=== PATIENT | male | born 1945 | race Caucasian/White ===

== ENCOUNTER 2017-07-23 20:22 | Inpatient (IN) | payer BC, MEDICARE ==
[~2017-07-23] VITALS: Ht 170.2 cm; Wt 113.9 kg
[2017-07-23 20:48] LABS: HEMATOCRIT 43.7 % (42-54); MEAN CORPUSCULAR HEMOGLOBIN 30.6 pg (27.0-33.0); MEAN CORPUSCULAR HGB CONC 34.2 g/dL (32.0-36.0); MEAN CORPUSCULAR VOLUME 89.4 fL (79-99); PLATELET COUNT (AUTO) 127 K/uL (130-400); RED BLOOD CELL COUNT(AUTO) 4.88 MIL/uL (4.50-6.20); RED CELL DISTRIBUTION WIDTH 14.9 % (11.0-15.5); WHITE BLOOD COUNT (AUTO) 13.3 K/uL (4.8-10.8)
[2017-07-23 20:58] LABS: INR 0.99 (0.85-1.15); PARTIAL THROMBOPLASTIN TIME 24.2 SEC (26.3-35.5); PROTHROMBIN TIME 10.4 SEC (9.6-11.6)
[2017-07-23 20:59] LABS: CREATININE 1.6 mg/dL (0.5-1.5); POTASSIUM 3.5 mmol/L (3.5-5.1)
[2017-07-23 21:14] LABS: ALBUMIN 3.7 g/dL (3.5-5.0); BILIRUBIN,TOTAL 1.2 mg/dL (0.2-1.0); CREATINE KINASE MB 1.7 ng/mL (0.5-3.6); TOTAL PROTEIN, SERUM 7.1 g/dL (6.0-8.3)
[2017-07-23] MEDS ORDERED: DOXYCYCLINE 100MG+NS 250ML 250 ML IV ONE (21:17)
[2017-07-23 21:34] LABS: BAND NEUTROPHILS % (MANUAL) 16 % (0-2); LYMPHOCYTES % (MANUAL) 5 % (22-44); MAN.DIFF COMMENT-IMPRESSION MANUAL DIFFERENTIAL; MONOCYTES % (MANUAL) 1 % (2-9); REACTIVE LYMPHOCYTES 2 % (0-0); SEGMENTED NEUTROPHILS % 76 % (40-70)
[2017-07-23] MEDS ORDERED: ACETAMINOPHEN 325 MG TAB ONE (21:34)
[2017-07-23] MEDS ORDERED: LEVOFLOXACIN 500 MG/D5W 100 ML 100 ML ONE (21:34)
[2017-07-23] MEDS ORDERED: SODIUM CHLORIDE 0.9% 1000ML 1,000 ML IV ONE (21:34)
[2017-07-23 21:35] LABS: PLATELET MORPHOLOGY COMMENT SLIGHTLY DECREASED
[2017-07-23 21:44] LABS: APPEARANCE,URINE Clear (CLEAR); BILIRUBIN,URINE Negative (NEGATIVE); COLOR,URINE Yellow (YELLOW); GLUCOSE, URINE (UA) Negative (NEGATIVE); KETONES,URINE Negative (NEGATIVE); LEUKOCYTE ESTERASE ,URINE Negative (NEGATIVE); NITRATE,URINE Negative (NEGATIVE); OCCULT BLOOD,URINE Small (NEGATIVE); PROTEIN,URINE POS 1+ (NEGATIVE)
[2017-07-23 21:50] LABS: AMPHET/METH SCREEN,URINE NEGATIVE (NEGATIVE); BARBITURATE SCREEN, URINE NEGATIVE (NEGATIVE); BENZODIAZEPINES SCREEN,URINE NEGATIVE (NEGATIVE); CANNABINOID SCREEN,URINE NEGATIVE (NEGATIVE); COCAINE SCREEN,URINE NEGATIVE (NEGATIVE); OPIATE SCREEN,URINE NEGATIVE (NEGATIVE); PHENCYCLIDINE SCREEN,URINE NEGATIVE (NEGATIVE)
[2017-07-23 22:06] LABS: BACTERIA,URINE Rare /HPF (None Seen); RBC,URINE None Seen /HPF (0-1); WBC,URINE 0-1 /HPF (0-1)
[2017-07-23 22:28] LABS: CREATINE KINASE MB 1.5 ng/mL (0.5-3.6); CREATINE KINASE, TOTAL 343 U/L (21-232); MYOGLOBIN 233 ng/mL (10-92); TROPONIN I < 0.04 ng/mL (0.00-0.06)
[2017-07-23] MEDS ORDERED: ACETAMINOPHEN 325 MG TAB PO PRN (23:45)
[2017-07-23] MEDS ORDERED: ONDANSETRON HCL MDV 20ML 2 MG/ML VIAL IVP PRN (23:45)
[2017-07-23] MEDS ORDERED: KETOROLAC TROMETHAMINE 30MG/ML ONE (23:47)
[2017-07-24] MEDS ORDERED: SODIUM CHLORIDE 0.9% 1000ML 1,000 ML IV ONE (03:58)
[2017-07-24 06:45] LABS: CREATINE KINASE MB 2.7 ng/mL (0.5-3.6); CREATINE KINASE, TOTAL 347 U/L (21-232); MYOGLOBIN 473 ng/mL (10-92); TROPONIN I < 0.04 ng/mL (0.00-0.06)
[2017-07-24 07:55] LABS: HIGH SENSITIVITY CRP 104.09 mg/L (0.0-3.0)
[2017-07-24 08:17] VITALS: BP 130/82
[2017-07-24] MEDS: SODIUM CHLORIDE 0.9% 1000ML 1,000 ML IV SCH ×3 (09:45→21:04)
[2017-07-24] MEDS ORDERED: LEVOFLOXACIN 500 MG/D5W 100 ML 100 ML IV SCH (10:00)
[2017-07-24 11:00] VITALS: BP 119/76
[2017-07-24] MEDS: ENOXAPARIN SODIUM 40 MG/0.4 ML SYRINGE SQ SCH (11:02)
[2017-07-24] MEDS ORDERED: LOSA100T29 PO (11:10)
[2017-07-24] MEDS ORDERED: LANS30CA53 PO (11:10)
[2017-07-24] MEDS ORDERED: ATOR40TA69 PO (11:10)
[2017-07-24] MEDS ORDERED: PRAS10TA6 PO (12:20)
[2017-07-24] MEDS ORDERED: ONDANSETRON HCL 4 MG/2 ML VIAL ONE (12:34)
[2017-07-24] MEDS: DOXYCYCLINE 100MG+NS 250ML 250 ML IV SCH ×2 (12:54→20:55)
[2017-07-24 16:00] VITALS: BP 133/76
[2017-07-24 19:00] VITALS: BP 122/79
[2017-07-24] MEDS: LEVOFLOXACIN 500 MG/D5W 100 ML 100 ML IV SCH (20:55)
[2017-07-24 23:39] VITALS: BP 111/70
[2017-07-25] MEDS ORDERED: ONDANSETRON HCL 4 MG/2 ML VIAL ONE (02:53)
[2017-07-25 04:00] VITALS: BP 130/88
[2017-07-25] MEDS: SODIUM CHLORIDE 0.9% 1000ML 1,000 ML IV SCH ×2 (05:05→10:05)
[2017-07-25 05:15] LABS: HEMATOCRIT 42.4 % (42-54); MEAN CORPUSCULAR HEMOGLOBIN 30.7 pg (27.0-33.0); MEAN CORPUSCULAR HGB CONC 33.8 g/dL (32.0-36.0); MEAN CORPUSCULAR VOLUME 90.8 fL (79-99); PLATELET COUNT (AUTO) 107 K/uL (130-400); RED BLOOD CELL COUNT(AUTO) 4.67 MIL/uL (4.50-6.20); RED CELL DISTRIBUTION WIDTH 15.4 % (11.0-15.5); WHITE BLOOD COUNT (AUTO) 12.6 K/uL (4.8-10.8)
[2017-07-25 05:23] LABS: CREATININE 2.3 mg/dL (0.5-1.5); POTASSIUM 4.6 mmol/L (3.5-5.1)
[2017-07-25 05:32] LABS: BAND NEUTROPHILS % (MANUAL) 38 % (0-2); BASOPHILS % (MANUAL) 3 % (0-2); EOSINOPHILS % (MANUAL) 2 % (1-6); LYMPHOCYTES % (MANUAL) 1 % (22-44); METAMYELOCYTES % 1 % (0-0); MONOCYTES % (MANUAL) 4 % (2-9); SEGMENTED NEUTROPHILS % 51 % (40-70)
[2017-07-25 05:33] LABS: MAN.DIFF COMMENT-IMPRESSION MANUAL DIFFERENTIAL
[2017-07-25 05:35] LABS: B-TYPE NATRIURETIC PEPTIDE 55 pg/mL (0-100)
[2017-07-25 07:54] VITALS: BP 121/69
[2017-07-25] MEDS: ENOXAPARIN SODIUM 40 MG/0.4 ML SYRINGE SQ SCH (10:03)
[2017-07-25 12:00] VITALS: BP 130/77
[2017-07-25] MEDS: DOXYCYCLINE 100MG+NS 250ML 250 ML IV SCH (14:09)
[2017-07-25] MEDS ORDERED: VANCOMYCIN PROTOCOL PER PHARMACY IV SCH (14:15)
[2017-07-25] MEDS ORDERED: COMPOUND IV REFRIGERATED 1 EACH IVSOLN MISC PRN (14:30)
[2017-07-25] MEDS ORDERED: PHARMACY COMMUNICATION MISC SCH (14:45)
[2017-07-25] MEDS ORDERED: DOXYCYCLINE 100MG+NS 250ML 250 ML IV SCH (14:45)
[2017-07-25] MEDS ORDERED: VANCOMYCIN 1.75 GM in SODIUM CHLORIDE 0.9% 250 ML IV SCH (15:00)
[2017-07-25 16:00] VITALS: BP 132/91
[2017-07-25 19:43] VITALS: BP 134/88
[2017-07-25] MEDS: LEVOFLOXACIN 500 MG/D5W 100 ML 100 ML IV SCH (21:36)
[2017-07-25 23:18] VITALS: BP 131/81
[2017-07-26 04:15] VITALS: BP 129/79
[2017-07-26 04:38] LABS: HEMATOCRIT 38.3 % (42-54); MEAN CORPUSCULAR HEMOGLOBIN 30.8 pg (27.0-33.0); MEAN CORPUSCULAR HGB CONC 34.3 g/dL (32.0-36.0); MEAN CORPUSCULAR VOLUME 89.9 fL (79-99); PLATELET COUNT (AUTO) 118 K/uL (130-400); RED BLOOD CELL COUNT(AUTO) 4.26 MIL/uL (4.50-6.20); RED CELL DISTRIBUTION WIDTH 15.3 % (11.0-15.5); WHITE BLOOD COUNT (AUTO) 14.5 K/uL (4.8-10.8)
[2017-07-26] MEDS: DOXYCYCLINE 100MG+NS 250ML 250 ML IV SCH ×2 (04:39→16:45)
[2017-07-26 04:56] LABS: ALBUMIN 2.2 g/dL (3.5-5.0); BILIRUBIN,TOTAL 1.2 mg/dL (0.2-1.0); CREATININE 1.7 mg/dL (0.5-1.5); MAGNESIUM 1.3 mg/dL (1.80-2.40); POTASSIUM 3.8 mmol/L (3.5-5.1)
[2017-07-26 05:57] LABS: BAND NEUTROPHILS % (MANUAL) 21 % (0-2); EOSINOPHILS % (MANUAL) 1 % (1-6); LYMPHOCYTES % (MANUAL) 3 % (22-44); METAMYELOCYTES % 2 % (0-0); MONOCYTES % (MANUAL) 3 % (2-9); SEGMENTED NEUTROPHILS % 70 % (40-70)
[2017-07-26 05:59] LABS: MAN.DIFF COMMENT-IMPRESSION MANUAL DIFFERENTIAL; PLATELET MORPHOLOGY COMMENT SLIGHTLY DECREASED
[2017-07-26 07:00] VITALS: BP 133/100
[2017-07-26 08:07] VITALS: BP 123/86
[2017-07-26] MEDS: PRASUGREL HCL 10 MG TABLET PO SCH (09:00)
[2017-07-26] MEDS: PANTOPRAZOLE SODIUM 40 MG TABLET.DR PO SCH (09:02)
[2017-07-26] MEDS: LOSARTAN 100 MG TABLET PO SCH (09:02)
[2017-07-26] MEDS: SODIUM CHLORIDE 0.9% 1000ML 1,000 ML IV SCH ×2 (09:02→11:45)
[2017-07-26] MEDS: ATORVASTATIN CALCIUM 40 MG TABLET PO SCH (09:03)
[2017-07-26 11:17] VITALS: BP 125/67
[2017-07-26] MEDS ORDERED: CEFTRIAXONE 2GM+NS 100ML 100 ML IV SCH (15:30)
[2017-07-26 16:42] VITALS: BP 132/80
[2017-07-26] MEDS: CEFTRIAXONE SODIUM 2 GM VIAL IVP SCH (16:45)
[2017-07-26] MEDS: METOCLOPRAMIDE 5 MG TABLET PO SCH (16:45)
[2017-07-26] MEDS: IPRATROPIUM/ALBUTEROL SULFATE 3 ML SOLUTION IH PRN (17:24)
[2017-07-26] MEDS ORDERED: DIATR MEGLU/DIATRIZOATE SODIUM 30 ML BOTTLE ONE (17:47)
[2017-07-26 20:00] VITALS: BP 133/66
[2017-07-27] VITALS (7 sets, daily range): BP systolic 107–140; BP diastolic 58–86
[2017-07-27] MEDS ORDERED: MAGNESIUM 2GM PREMIX 50ML 50 ML IV ONE (04:03)
[2017-07-27] MEDS ORDERED: POTASSIUM CHLORIDE 10% ELIXIR 20 MEQ/15 ML UDCUP PO PRN (04:15)
[2017-07-27] MEDS ORDERED: POTASSIUM CHLORIDE 20 MEQ ERTAB PO PRN (04:15)
[2017-07-27] MEDS ORDERED: MAGNESIUM 2GM PREMIX 50ML 50 ML IV SCH (04:15)
[2017-07-27] MEDS ORDERED: LIDOCAINE HCL-MPF 1% 2ML VIAL IVP PRN (04:15)
[2017-07-27] MEDS ORDERED: POTASSIUM CHLORIDE 20MEQ/100ML 100 ML IV PRN (04:15)
[2017-07-27] MEDS: DOXYCYCLINE 100MG+NS 250ML 250 ML IV SCH (05:02)
[2017-07-27 05:15] LABS: BASOPHILS % (AUTO) 0.2 % (0.0-5.0); EOSINOPHILS % (AUTO) 3.1 % (0.0-8.0); HEMATOCRIT 39.3 % (42-54); LYMPHOCYTES % (AUTO) 4.6 % (21.0-51.0); MEAN CORPUSCULAR HEMOGLOBIN 30.1 pg (27.0-33.0); MEAN CORPUSCULAR HGB CONC 33.7 g/dL (32.0-36.0); MEAN CORPUSCULAR VOLUME 89.3 fL (79-99); NEUTROPHILS % (AUTO) 86.1 % (40.0-77.0); NUCLEATED RED BLOOD CELLS 0.1 % (0.0-0.19); PLATELET COUNT (AUTO) 126 K/uL (130-400); RED CELL DISTRIBUTION WIDTH 15.2 % (11.0-15.5)
[2017-07-27 05:26] LABS: CREATININE 1.5 mg/dL (0.5-1.5); MAGNESIUM 2.4 mg/dL (1.80-2.40); POTASSIUM 3.8 mmol/L (3.5-5.1)
[2017-07-27] MEDS: IPRATROPIUM/ALBUTEROL SULFATE 3 ML SOLUTION IH PRN (07:16)
[2017-07-27] MEDS: ATORVASTATIN CALCIUM 40 MG TABLET PO SCH (08:54)
[2017-07-27] MEDS: PRASUGREL HCL 10 MG TABLET PO SCH (08:54)
[2017-07-27] MEDS: LOSARTAN 100 MG TABLET PO SCH (08:55)
[2017-07-27] MEDS: SODIUM CHLORIDE 0.9% 1000ML 1,000 ML IV SCH ×3 (08:56→22:21)
[2017-07-27] MEDS: PANTOPRAZOLE SODIUM 40 MG TABLET.DR PO SCH (08:56)
[2017-07-27] MEDS: METOCLOPRAMIDE 5 MG TABLET PO SCH ×2 (09:20→11:44)
[2017-07-27] MEDS ORDERED: DICYCLOMINE HCL 20 MG TAB PO PRN (13:15)
[2017-07-27] MEDS ORDERED: LACTOBACILLUS RHAMNOSUS GG 1 EACH CAP.SPRINK PO SCH (13:15)
[2017-07-27] MEDS: METRONIDAZOLE 500 MG TABLET PO SCH ×2 (14:48→22:21)
[2017-07-27] MEDS: CEFTRIAXONE SODIUM 2 GM VIAL IVP SCH ×2 (15:56→20:01)
[2017-07-28 03:00] VITALS: BP 118/71
[2017-07-28] MEDS: METRONIDAZOLE 500 MG TABLET PO SCH ×2 (06:02→13:52)
[2017-07-28 07:00] VITALS: BP 127/69
[2017-07-28] MEDS ORDERED: LOPERAMIDE HCL 2 MG CAP PO SCH ×2 (08:15→11:00)
[2017-07-28] MEDS: PRASUGREL HCL 10 MG TABLET PO SCH (09:04)
[2017-07-28] MEDS: ATORVASTATIN CALCIUM 40 MG TABLET PO SCH (09:04)
[2017-07-28] MEDS: PANTOPRAZOLE SODIUM 40 MG TABLET.DR PO SCH (09:04)
[2017-07-28] MEDS: LOSARTAN 100 MG TABLET PO SCH (09:04)
[2017-07-28] MEDS: SODIUM CHLORIDE 0.9% 1000ML 1,000 ML IV SCH (09:06)
[2017-07-28 11:00] VITALS: BP 147/78
[2017-07-28] MEDS: CEFTRIAXONE SODIUM 2 GM VIAL IVP SCH (15:17)
[2017-07-28 16:00] VITALS: BP 139/69
[2017-07-28] MEDS ORDERED: METRONIDAZOLE 500 MG TABLET PO SCH (17:00)
== END 2017-07-28 18:10 | disposition home or self-care (01) | DRG 872 ==
LOC: EDH 20:22 → OBSVTOIN 22:15 → EDHIP 22:15 → 4CH 07-24 08:23 → 4BH 07-24 20:55 → 3BH 07-27 02:52
PROVIDERS: ADMIT Internal Medicine Nephrology; ATTEND Internal Medicine Nephrology
DX: A40.0 Sepsis due to streptococcus, group A (principal); N17.9 Acute kidney failure, unspecified; D69.6 Thrombocytopenia, unspecified; E66.9 Obesity, unspecified; E86.0 Dehydration; X30.XXXA Exposure to excessive natural heat, initial encounter; K21.9 Gastro-esophageal reflux disease without esophagitis; I25.10 Atherosclerotic heart disease of native coronary artery without angina pectoris; R19.7 Diarrhea, unspecified; R79.89 Other specified abnormal findings of blood chemistry; R33.9 Retention of urine, unspecified; X58.XXXA Exposure to other specified factors, initial encounter; N18.9 Chronic kidney disease, unspecified; I12.9 Hypertensive chronic kidney disease with stage 1 through stage 4 chronic kidney disease, or unspecified chronic kidney disease; E78.5 Hyperlipidemia, unspecified; Z95.5 Presence of coronary angioplasty implant and graft; Z68.39 Body mass index [BMI] 39.0-39.9, adult; Y93.89 Activity, other specified; Y92.89 Other specified places as the place of occurrence of the external cause; Y99.8 Other external cause status; Z79.899 Other long term (current) drug therapy; Z79.82 Long term (current) use of aspirin
CPT/HCPCS: 36415; 70450; 71045; 74176; 80048; 80053; 80305; 81001; 82550; 82553; 82948; 83605; 83735; 83874; 83880; 84484; 85025; 85610; 85651; 85730; 86141; 86757; 87040; 87088; 87186; 87476; 87507; 93005; 93306; 94640; 94664; 99291; A4218; J0696; J1650; J1885; J1956; J2405; J3370; J3475; J3490; J7030; Q9963